=== PATIENT | female | born 1935 | race Caucasian/White ===

== ENCOUNTER 2022-12-25 11:45 | Inpatient (IN) | payer MEDICARE, BC, SELFPAY ==
[2022-12-25] VITALS (67 sets, daily range): BP systolic 124–225; BP diastolic 64–103; PULSE 74–102; RESP 15–27; TEMP 36.4–36.6; O2SAT 90–99; BMI 29.0
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
--- NOTE | 2022-12-25 11:53 | PC.NURSE ---
SULEMAN JOSÉ, , DAUGHTER
--- NOTE | 2022-12-25 11:55 | CTR_ITS ---
PROCEDURE INFORMATION: Exam: CT Head Without Contrast Exam date and time: 12/25/2022 12:03 PM Age: 87 years old Clinical indication: Altered mental status/memory loss; Patient HX: Unknown lkwt, PT not responsive to pain stimuli; Additional info: AMS TECHNIQUE: Imaging protocol: Computed tomography of the head without contrast. Radiation optimization: All CT scans at this facility use at least one of these dose optimization techniques: automated exposure control; mA and/or kV adjustment per patient size (includes targeted exams where dose is matched to clinical indication); or iterative reconstruction. REPORTING DATA: Count of CT and Cardiac NM exams in prior 12 months: This patient has received 0 known CTs and 0 known cardiac nuclear medicine studies in the 12 months prior to the current study. COMPARISON: No relevant prior studies available. RADIATION DOSE METRICS: Total DLP (mGy-cm): 1094.18 FINDINGS: Brain: No acute appearing brain parenchymal abnormality. The wolff matter/white matter junction is maintained. No intracranial hemorrhage. No extraaxial fluid collections. There is diffuse brain atrophy. Cerebral ventricles: No hydrocephalus. Paranasal sinuses: Minimal paranasal sinus mucoperiosteal thickening. Mastoid air cells: The visualized mastoid air cells are aerated. Bones/joints: No calvarial fracture. There is hyperostosis frontalis interna. Soft tissues: No acute soft tissue abnormality. CT/CT head wo con* [id number] IMPRESSION: No acute intracranial abnormality.
--- NOTE | 2022-12-25 11:55 | XRR_ITS ---
PROCEDURE INFORMATION: Exam: XR Chest Exam date and time: 12/25/2022 12:07 PM Age: 87 years old Clinical indication: AMS TECHNIQUE: Imaging protocol: Radiologic exam of the chest. Views: 1 view. COMPARISON: No relevant prior studies available. FINDINGS: Lungs: Possible basilar atelectasis at least on the left side. Pleural spaces: No evidence of a right pleural effusion. Possible left pleural effusion. No pneumothorax. Heart/Mediastinum: The heart is enlarged. Bones/joints: Curvature of the thoracolumbar junction convex to the right associated with multilevel disc degeneration. Degenerative changes in both shoulders. Soft tissues: There appears to be a large hernia projecting over the inferior aspect of both hemithoraces, more so on the left. This contains bowel. Difficult to further characterize on this exam. XR/XR chest 1V portable [id number] IMPRESSION: Large hiatal hernia. Possible left basilar atelectasis or left pleural effusion.
--- NOTE | 2022-12-25 11:56 | ECG_ITS ---
[facility] Test Date: 2022-12-25 Pat Name: Astrid Skaggs Department: Room: Gender: Female Banquet Chef: : 1935 Requested By: Jeffery Ferrari Order Number: [id number] Medrano MD: Tj Lynch M.D. Measurements Intervals [place] Rate: 94 P: 63 PA: 168 QRS: 59 QRSD: 106 T: 54 QT: 382 QTc: 478 Interpretive Statements SINUS RHYTHM WITH SINUS ARRHYTHMIA POSSIBLE LEFT ATRIAL ENLARGEMENT [-0.1mV P-WAVE IN V1/V2] INCOMPLETE RIGHT BUNDLE BRANCH BLOCK [90+ ms QRS DURATION, TERMINAL R IN V1/V2, 40+ ms S IN I/aVL/V4/V5/V6] No previous ECG available for comparison Electronically Signed On 12-27-2022 8:34:17 CDT by Tj Lynch M.D. [id number]
[2022-12-25 12:04] LABS: Glucose Point of Care 147 mg/dL (70-110)
--- NOTE | 2022-12-25 12:08 | PC.PHAR ---
[facility]
[2022-12-25 12:26] LABS: ABG PCO2 41.3 mmHg (35-45); ABG PH Result 7.49 (7.35-7.45); PO2 ABG 63.7 mmHg (80.0-100.0)
[2022-12-25 12:27] LABS: Base Excess ABG 7.3 mmol/L (-2.0-2.0); Oxygen Saturation ABG 94.5; Potassium Level - ABG 2.5 mmol/L (3.5-5.0)
[2022-12-25 12:29] LABS: HGB O2 Sat 92.9 % (95-100); Total Hemoglobin 15.7 g/dL (12-16)
[2022-12-25 12:30] LABS: Blood Gas Drawn By WALCI; Carboxyhemoglobin 1.4 %THgb (0.4-20.1); Methemoglobin 0.3 % (0.4-1.5)
[2022-12-25 12:31] LABS: HCO3 ABG 31.4 mmol/L (22-26)
[2022-12-25 12:32] LABS: Basophils % 0.3 %; Eosinophils # 0.1 10^3/uL (0.0-0.8); Eosinophils % 0.8 %; Hematocrit 43.4 % (37.0-47.0); Hemoglobin 15.7 g/dL (11.5-15.3); Lymphocytes # 0.7 10^3/uL (0.8-4.8); Lymphocytes % 10.2 %; Mean Corpuscular HGB Conc 36.2 g/dL (30.0-36.0); Mean Corpuscular Volume 85.8 fl (81-99); Mean Platelet Volume 9.1 fL (7.4-10.4); Monocytes # 0.4 10^3/uL (0.2-0.9); Neutrophils # 5.92 10^3/uL (1.8-7.7); Neutrophils % 82.6 %; Nucleated Red Blood Cells % 0 %; Platelet Count 343 10^3/cmm (130-400); Red Blood Count 5.06 10^6/uL (4.1-5.3); Red Cell Distribution Width 12.2 % (12.1-15.1); White Blood Count 7.2 10^3/uL (4.0-10.0)
[2022-12-25 12:34] LABS: Alveolar-Arterial Oxygen Gradi 4.6 mmHg (5-10); Blood Gas Allen Test Pos; Blood Gas Operator Identificat WALCI; Blood Gas Sample Site Radial, left; Blood Gas Sample Type Arterial; Ionized Calcium Level - ABG 1.1 mmol/L (1.1-1.4); Oxygen Device ROOM AIR
[2022-12-25 12:52] LABS: Lactic Sepsis W/Reflex 1.3 mmol/L (0.5-2.2)
[2022-12-25 12:56] LABS: Troponin(5th) Baseline 19 ng/L (0-10)
[2022-12-25 13:03] LABS: NT Pro B Type Natriuretic Pept 568 pg/mL (0-450); Procalcitonin 0.05 ng/mL (0-0.5)
[2022-12-25 13:12] LABS: Amphetamines Screen Urine Negative (Negative); Barbiturates Screen Urine Negative (Negative); Benzodiazepines Screen Urine Negative (Negative); Cocaine Screen Urine Negative (Negative); Opiate Screen Urine Negative (Negative); PCP Screen Urine Negative (Negative); THC Screen Urine Negative (Negative)
[2022-12-25 13:14] LABS: Alanine Aminotransferase 24 U/L (0-33); Albumin Level 4.4 g/dL (3.5-5.2); Alkaline Phosphatase 64 U/L (35-105); Anion Gap 18.5 (5-19); Aspartate Amino Transferase 53 U/L (0-32); Blood Urea Nitrogen 11 mg/dL (8-23); C Reactive Protein 3.3 mg/L (0.0-4.9); Calcium 9.6 mg/dL (8.5-10.5); Carbon Dioxide 28 mmol/L (22-29); Chloride 82 mmol/L (98-107); Glucose 152 mg/dL (65-115); Osmolality Calculated 264 mOsm/kg (285-295); Sodium 126 mmol/L (136-145); Total Bilirubin 1.1 mg/dL (0.15-1.2); Total Protein 7.4 g/dL (6.6-8.7)
[2022-12-25 13:20] LABS: Add Urine Microscopic? YES; Bilirubin Urine Neg (Negative); Blood Urine 2+ (Negative); Glucose Urine UA Norm (Normal); Ketones Urine 1+ (Negative); Leukocyte Esterase Urine Negative (Negative); Nitrate Urine Negative (Negative); Protein Urine Neg (Negative); Sulfosalicylic Acid Urine Negative (Negative); Urine Appearance Clear (CLEAR); Urine Color Yellow (Yellow); Urobilinogen Urine Norm (Negative); pH Urine 8 (5-7)
[2022-12-25 13:22] LABS: Bacteria Urine TRACE /hpf; Squamous Epithelial Cell Urine RARE /hpf (0-5); WBC Urine RARE /hpf (0-5)
[2022-12-25 13:23] LABS: Add Urine Culture? No
[2022-12-25 13:27] LABS: Acetaminophen < 5.0 ug/mL (10-30); Alcohol Level < 10 mg/dL (0-10); Potassium 2.5 mmol/L (3.5-5.1); Salicylate < 0.3 mg/dL (3-10)
[2022-12-25] MEDS: lidocaine 1% 5 ML in potassium chloride premix 100 ML 26.25 ML IV ×2 (13:34→18:06)
[2022-12-25] MEDS: sodium chloride 0.9% 1,000 ML 75 ML IV (13:42)
[2022-12-25 13:48] LABS: Magnesium 1.7 mg/dL (1.7-2.3)
[2022-12-25 13:55] LABS: SARS Covid-2 Antigen negative (Negative)
--- NOTE | 2022-12-25 13:55 | ECG_ITS ---
[facility] Test Date: 2022-12-25 Pat Name: Astrid Skaggs Department: Room: Gender: Female Rad Tech: : 1935 Requested By: Jeffery Ferrari Order Number: [id number] Mitchell MD: Tj Lynch M.D. Measurements Intervals [place] Rate: 98 P: 62 IA: 160 QRS: 50 QRSD: 96 T: 48 QT: 366 QTc: 468 Interpretive Statements SINUS RHYTHM WITH OCCASIONAL VENTRICULAR PREMATURE COMPLEXES POSSIBLE LEFT ATRIAL ENLARGEMENT [-0.1mV P-WAVE IN V1/V2] POSSIBLE RIGHT VENTRICULAR CONDUCTION DELAY [RSR (QR) IN V1/V2] MINIMAL ST DEPRESSION [0.025+ mV ST DEPRESSION] Compared to ECG 12/25/2022 12:26:29 Ventricular premature complex(es) now present ST (T wave) deviation now present Sinus arrhythmia no longer present Incomplete right bundle-branch block no longer present Electronically Signed On 12-27-2022 8:37:59 CDT by Tj Lynch M.D. [id number]
[2022-12-25 14:03] LABS: Glucose Point of Care 122 mg/dL (70-110)
[2022-12-25] MEDS: labetalol 5 mg/mL SDV 20mL 20 MG IVP (14:05)
--- NOTE | 2022-12-25 14:11 | PC.NURSE ---
Multiple attempts to call shawanda Pak with number on file. Busy signal each time. Unable to assess allergies at this time. Elevated BP since admission and per EMS.
--- NOTE | 2022-12-25 14:17 | PC.NURSE ---
Patient brought in by EMS, unresponsive and obtunded upon admission, EVAN hx or symptoms per patient. Unable to get ahold of daughter. Patient had some decerbate posturing upon admission but currently is not showing s/s of posturing. Able to open mouth on command now versus upon admission but still no verbal responses. Pupils brisk and PERRLA. Unable to assess NIH as not responding. Report called to Brenna CSU RN.
[2022-12-25 14:23] LABS: Free T4 Free Thyroxine 1.32 ng/dL (0.82-1.77)
[2022-12-25 14:42] LABS: Glucose Point of Care 127 mg/dL (70-110)
[2022-12-25 14:44] LABS: Troponin 5 2HR 19.72 ng/L (0-10)
[2022-12-25 14:47] LABS: Troponin 5 2HR Delta 0.72 ABS# (0-10)
--- NOTE | 2022-12-25 15:18 | PC.NURSE ---
Patient arrived from ER with altered mental status and was unable to answer any admission assessment questions. Daughter was contacted and was able to give the patients history, immunizations, and drug allergies.
--- NOTE | 2022-12-25 17:06 | CTR_ITS ---
PROCEDURE INFORMATION: Exam: CTA Chest With Contrast Exam date and time: 12/25/2022 6:35 PM Age: 87 years old Clinical indication: Bloating; Other: Hypoxia; Patient HX: Limited HX due to PT condition; Additional info: AMS, hypoxia, abdominal pain TECHNIQUE: Imaging protocol: Computed tomographic angiography of the chest with contrast. Exam focused on the arteries. 3D rendering (Not supervised by radiologist): MIP and/or 3D reconstructed images were created by the technologist. Radiation optimization: All CT scans at this facility use at least one of these dose optimization techniques: automated exposure control; mA and/or kV adjustment per patient size (includes targeted exams where dose is matched to clinical indication); or iterative reconstruction. Contrast material: OMNIPAQUE 350; Contrast volume: 100 ml; Contrast route: INTRAVENOUS (IV); REPORTING DATA: Count of CT and Cardiac NM exams in prior 12 months: This patient has received 0 known CTs and 0 known cardiac nuclear medicine studies in the 12 months prior to the current study. COMPARISON: CR (CHEST, ) 12/25/2022 12:07 PM RADIATION DOSE METRICS: Total DLP (mGy-cm): 845.21 FINDINGS: Pulmonary arteries: There is no pulmonary embolism in the central-proximal segmental branches. Assessment of the peripheral subsegmental small branches is limited. Aorta: No aortic aneurysm. No aortic dissection. Lungs: Compressive atelectasis adjacent to the large diaphragmatic hernia. Otherwise no acute lung consolidation or ground-glass opacity. Calcified pulmonary granuloma anteromedial left upper lobe measuring 9 mm. Pleural spaces: Unremarkable. No pneumothorax. No pleural effusion. Heart: Mild cardiomegaly with coronary calcification. Suggestion of pulmonary vascular redistribution which may represent mild vascular congestion. Lymph nodes: Unremarkable. No enlarged lymph nodes. Diaphragm: Large diaphragmatic/hiatal hernia as described on abdominal CT report below. Bones/joints: S shaped scoliosis of the thoracolumbar spine. Soft tissues: Unremarkable. PROCEDURE INFORMATION: Exam: CT Abdomen And Pelvis With Contrast Exam date and time: 12/25/2022 6:35 PM Age: 87 years old Clinical indication: Bloating; Other: Hypoxia; Patient HX: Limited HX due to PT condition; Additional info: AMS, hypoxia, abdominal pain TECHNIQUE: Imaging protocol: Computed tomography of the abdomen and pelvis with contrast. Radiation optimization: All CT scans at this facility use at least one of these dose optimization techniques: automated exposure control; mA and/or kV adjustment per patient size (includes targeted exams where dose is matched to clinical indication); or iterative reconstruction. Contrast material: OMNIPAQUE 350; Contrast volume: 100 ml; Contrast route: INTRAVENOUS (IV); REPORTING DATA: Count of CT and Cardiac NM exams in prior 12 months: This patient has received 0 known CTs and 0 known cardiac nuclear medicine studies in the 12 months prior to the current study. COMPARISON: CR (CHEST, ) 12/25/2022 12:07 PM RADIATION DOSE METRICS: Total DLP (mGy-cm): 845.21 FINDINGS: Liver: Normal. No mass. Gallbladder and bile ducts: Normal. No calcified stones. No ductal dilation. Pancreas: Normal. No ductal dilation. Spleen: Normal. No splenomegaly. Adrenal glands: Normal. No mass. Kidneys and ureters: Multiple simple renal cysts bilaterally the largest measuring up to 3 mm on the right. No hydronephrosis or suspicious lesion. No obstructing calculi. Stomach and bowel: There is a large midline/left diaphragmatic hernia which contains fat, most of the stomach, portion of the transverse colon with no obvious regional luminal distention to suggest obstruction. Low stool burden. Colonic diverticulosis. No acute bowel findings otherwise. No imaging signs of bowel obstruction/ileus. Appendix: No evidence of appendicitis. Intraperitoneal space: Unremarkable. No free air. No significant fluid collection. Vasculature: Diffuse arterial calcifications without aneurysm. Lymph nodes: No enlarged lymph nodes. Urinary bladder: nondistended bladder containing a Da Silva balloon in good position. Reproductive: Absent uterus. Bones/joints: S shaped scoliosis of the thoracolumbar spine. Multilevel vertebral disc degeneration and endplate osteophytes. No acute osseous findings otherwise. Soft tissues: No acute findings. CT/CT angio chest w abd pel w con IMPRESSION: 1. No acute PE. 2. Mild cardiomegaly with possible element of mild vascular congestion. Coronary calcification. 3. Compressive atelectasis adjacent to the diaphragm. No acute lung findings otherwise. Large diaphragmatic hernia. Please refer to abdominopelvic CT report below. IMPRESSION: 1. Large hiatal/diaphragmatic hernia as described above. 2. Colonic diverticulosis. No acute bowel findings. 3. No acute abdominopelvic findings otherwise. Please see chest CT report above. COMMENTS: Consistent with the [employer]'s Incidental Findings Committee white paper (J Am Young Radiol 2018): Any incidental renal lesion less than 1 cm or classified as too small to characterize, or any incidental cystic renal lesion characterized as simple-appearing, is likely benign. No follow-up imaging is recommended for these lesions per consensus recommendations based on imaging criteria.
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
[2022-12-25] MEDS: docusate sodium 100 mg Capsule PO (17:55)
--- NOTE | 2022-12-25 17:56 | ECG_ITS ---
[facility] Test Date: 2022-12-25 Pat Name: Astrid Skaggs Department: Room: 111 Gender: Female Supervisor Finishing Room: : 1935 Requested By: Jeffery Ferrari Order Number: [id number] Mitchell MD: Tj Lynch M.D. Measurements Intervals [place] Rate: 86 P: 62 WA: 157 QRS: 59 QRSD: 106 T: 53 QT: 403 QTc: 483 Interpretive Statements SINUS RHYTHM Compared to ECG 12/25/2022 13:55:59 Ventricular premature complex(es) no longer present ST (T wave) deviation no longer present Electronically Signed On 12-27-2022 8:37:22 CDT by Tj Lynch M.D. [id number]
[2022-12-25 18:25] LABS: Vitamin B12 466 pg/mL (232-1245)
[2022-12-25] MEDS: iohexol 350 mg/mL 500 mL Btl (per mL) IV (18:36)
[2022-12-25 18:37] LABS: Creatine Phosphokinase 884 U/L (26-192)
[2022-12-25 18:39] LABS: Ammonia 25 umol/L (11-51)
[2022-12-25 19:19] LABS: Troponin 5 6HR 24.07 ng/L (0-10)
[2022-12-25 19:23] LABS: Troponin 5 6HR Delta 5.07 ng/L (0-12)
[2022-12-25 19:38] LABS: Folate Level 14.8 ng/mL (4.8-37.3)
[2022-12-26] VITALS (52 sets, daily range): BP systolic 111–157; BP diastolic 55–73; PULSE 60–102; RESP 16–30; TEMP 36.4–37.2; O2SAT 89–94
[2022-12-26] MEDS: ondansetron 2 mg/ML SDV 2 mL 4 MG IVP (00:23)
[2022-12-26] MEDS: sodium chloride 0.9% 1,000 ML 75 ML IV ×2 (03:06→18:31)
[2022-12-26 03:34] LABS: Basophils % 0.4 %; Eosinophils # 0.2 10^3/uL (0.0-0.8); Hematocrit 38.5 % (37.0-47.0); Hemoglobin 13.1 g/dL (11.5-15.3); Lymphocytes # 1.3 10^3/uL (0.8-4.8); Lymphocytes % 16.7 %; Mean Corpuscular Hemoglobin 30.5 pg (28.0-34.0); Mean Corpuscular Volume 89.7 fl (81-99); Mean Platelet Volume 9.5 fL (7.4-10.4); Monocytes # 0.6 10^3/uL (0.2-0.9); Neutrophils # 5.57 10^3/uL (1.8-7.7); Neutrophils % 72.6 %; Nucleated Red Blood Cells % 0 %; Platelet Count 313 10^3/cmm (130-400); Red Blood Count 4.29 10^6/uL (4.1-5.3); Red Cell Distribution Width 12.5 % (12.1-15.1); White Blood Count 7.7 10^3/uL (4.0-10.0)
[2022-12-26 04:15] LABS: Alanine Aminotransferase 19 U/L (0-33); Albumin Level 3.8 g/dL (3.5-5.2); Alkaline Phosphatase 53 U/L (35-105); Anion Gap 17.8 (5-19); Aspartate Amino Transferase 41 U/L (0-32); Blood Urea Nitrogen 10 mg/dL (8-23); Calcium 8.8 mg/dL (8.5-10.5); Carbon Dioxide 27 mmol/L (22-29); Chloride 92 mmol/L (98-107); Glucose 95 mg/dL (65-115); Osmolality Calculated 275 mOsm/kg (285-295); Potassium 3.8 mmol/L (3.5-5.1); Sodium 133 mmol/L (136-145); Total Bilirubin 0.9 mg/dL (0.15-1.2); Total Protein 5.8 g/dL (6.6-8.7)
--- NOTE | 2022-12-26 12:23 | MRR_ITS ---
PROCEDURE INFORMATION: Exam: MR Head Without Contrast Exam date and time: 12/26/2022 2:18 PM Age: 87 years old Clinical indication: Altered mental status/memory loss; Confusion or disorientation; Additional info: Acute psychosis; Evalaute for organic cause TECHNIQUE: Imaging protocol: Magnetic resonance imaging of the head without contrast. COMPARISON: CT head wo con* [id number] 12/25/2022 12:03 PM FINDINGS: Brain: No acute infarct. No hemorrhage. No edema. Mild diffuse cerebral atrophy and FLAIR T2 hyperintense signal abnormality within the periventricular and deep white matter tracts consistent with chronic small vessel ischemic disease. Cerebral ventricles: Normal. No ventriculomegaly. Bones/joints: Unremarkable. Paranasal sinuses: Mucosal thickening of the inferior maxillary sinuses. Mastoid air cells: Trace left mastoid effusion. Orbital cavities: Unremarkable. Soft tissues: Unremarkable. MR/MR head wo con* [id number] IMPRESSION: No acute ischemia.
--- NOTE | 2022-12-26 14:28 | PC.NURSE ---
pt continues to be paranoid,confused.states she is in someone else's body.we are snatching bodies.she spoke with her daughter over phone and that seemed to settle her a little bit.to mri via bed at 1410.
--- NOTE | 2022-12-26 15:02 | PC.NURSE ---
mri was completed.no sedation required.report phoned to m/s.transferred to room 261 via bed at this time
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
--- NOTE | 2022-12-26 18:56 | PC.NURSE ---
SHIFT START This nurse will be 1:1 sitter with pt this shift. When first walked into room pt was alert sitting up in bed eating a bowl of cereal. Was talking with sitter at bedside.. Smiled at me and was pleasant. Is oriented to person, place, month, year and parts of situation. Tells me she remembers and says she had some MRI's today. Also stated I thought I was dying and I guess I was really out of it . Denies pain at present. Following directions and answering questions.
[2022-12-27 03:43] LABS: Alanine Aminotransferase 15 U/L (0-33); Albumin Level 3.5 g/dL (3.5-5.2); Alkaline Phosphatase 41 U/L (35-105); Anion Gap 12.5 (5-19); Aspartate Amino Transferase 33 U/L (0-32); Blood Urea Nitrogen 17 mg/dL (8-23); Calcium 8.4 mg/dL (8.5-10.5); Carbon Dioxide 30 mmol/L (22-29); Chloride 96 mmol/L (98-107); Creatinine Clr Calc Pharmacy 49.2309; Globulin 1.7 g/dL (1.3-4.6); Glucose 83 mg/dL (65-115); Osmolality Calculated 281 mOsm/kg (285-295); Potassium 3.5 mmol/L (3.5-5.1); Sodium 135 mmol/L (136-145); Total Bilirubin 0.6 mg/dL (0.15-1.2); Total Protein 5.2 g/dL (6.6-8.7)
[2022-12-27 03:47] LABS: Creatine Phosphokinase 321 U/L (26-192)
[2022-12-27 04:00] VITALS: BP 126/70; PULSE 74; RESP 16; TEMP 36.6; O2SAT 91
--- NOTE | 2022-12-27 06:26 | PC.NURSE ---
SHIFT SUMMARY Slept well tonight. Has had no c/o and no signs of paranoia. Has been very pleasant. Carrying on good conversation with nurse this morning. Talking about her family and places she has lived. Says can't figure out what happened to her. Does remember just not being able to figure things out in her mind. Says she is sure glad she is feeling better
[2022-12-27 07:25] VITALS: BP 175/75; PULSE 71; RESP 18; TEMP 36.4; O2SAT 90
[2022-12-27] MEDS: docusate sodium 100 mg Capsule PO ×2 (08:48→17:55)
[2022-12-27] MEDS: pantoprazole DR 40 mg Tablet PO (08:48)
[2022-12-27] MEDS: sodium chloride 0.9% 1,000 ML 75 ML IV (08:49)
[2022-12-27 11:35] VITALS: BP 164/71; PULSE 83; RESP 18; TEMP 36.4; O2SAT 91
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
--- NOTE | 2022-12-27 13:18 | P.PN_ITS ---
Subjective Subjective: Patient with undetermined underlying psychological condition who seems to improve when she talks to her family. With me she wanted to know what her status was. When I talked to her about a short-term custodial facility placement she said she would rather not talk about it. However then she proceeded to continue to ask how she was doing but would not tell me how she was feeling. The nurse just called me and said the patient is experiencing agitation throwing things and broke her phone. Vitals/I&O/Wt Last Vital Signs Temp 97.5 F L 12/27/22 11:35 Pulse 83 12/27/22 11:35 Resp 18 12/27/22 11:35 BP 164/71 12/27/22 11:35 Pulse Ox 91 12/27/22 11:35 O2 Del Method Room Air 12/27/22 11:35 12/26/22 12/27/22 12/27/22 22:59 06:59 14:59 Intake Total 1240 / 1240 100 / 1340 1240 / 1240 Output Total 150 / 150 350 / 500 Balance 1090 / 1090 -250 / 840 1240 / 1240 Physical Exam Narrative: At the time of rounding this morning patient was alert and oriented to person place time not really situation. Neurologic nonfocal Heart normal S1-S2 without murmurs clicks gallops or rubs Lungs clear to auscultation without wheezes rales or rhonchi Abdomen soft nontender nondistended positive bowel sounds Extremities no clubbing cyanosis or edema Urinary Catheter Management: Da Silva: Cath Placed During This Visit: yes Reason for Continuing Indwelling Catheter: Other Urinary Catheter Date of Insertion: 12/25/22 Urinary Catheter Time of Insertion: 12:49 Data 12/26/22 02:48 12/27/22 02:28 Micro: Microbiology 12/25/22 12:19 Blood Culture - Preliminary Blood NEGATIVE TO DATE 12/25/22 12:22 Blood Culture - Preliminary Blood NEGATIVE TO DATE A&P Assessment and plan (1) Acute psychosis: Patient presenting with paranoid ideation as noted in H&P. MRI of the brain was negative and her electrolytes were corrected. VSS have been stable and work up is negative. Additional information provided that patient has had a similar episode in the past where she needed inpatient admission for 3 days, episode appears to have resolved with Valium. Overall impression is now that more consistent with acute psychosis rather than an organic cause. psychiatry was consulted, however, I do not see note. Will call for consult [employer] plan is for pt to live with daugther in [place]. Appreciate CM assistance with plan. Will need SNF in short term. (2) Hypokalemia: improved after replacement. will follow trend. (3) Generalized muscle weakness: Generalized muscle weakness without focal signs. May be related to hypokalemia and rhabdomyolysis which is mild. CPK improved to 321 from 884. and hypokalemia improved. Plan SNF locally. CM in touch with daughter see their note. Attestations Medical Necessity Statement*: Medical management and adjustments to medications with planning on short-term custodial facility placement. Coding Level of Care Code Acute Code for g Fwd Diagnoses Acute psychosis F23 Hypokalemia E87.6 Generalized muscle weakness M62.81
[2022-12-27 15:55] VITALS: BP 183/80; PULSE 101; RESP 18; TEMP 36.2; O2SAT 92
--- NOTE | 2022-12-27 16:23 | PC.OT ---
REGGIE ORDER RECEIVED, UNABLE TO PERFORM TEST THIS DATE SECONDARY TO PATIENT UNDRESSING HERSELF, AND DEMONSTRATING COMBATIVE AND AGGRESSIVE BEHAVIORS NOTED BY YELLING AND THROWING THINGS AT PEOPLE AND ACROSS THE ROOM. PT. ALSO NOTED AT TIME OF OT ARRIVAL, TO BE WRITING SOS ON WINDOW WITH LOTION. WILL ATTEMPT AGAIN WHEN APPROPRIATE AND MENTATION IMPROVES.
[2022-12-27] MEDS: LORazepam 2 mg/mL INJ 1 mL 1 MG IVP (16:27)
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
[2022-12-27] MEDS: OLANZapine 5 mg ODT 2.5 MG PO (17:06)
[2022-12-27 20:00] VITALS: BP 152/85; PULSE 104; RESP 18; TEMP 36.6; O2SAT 91
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
[2022-12-28] VITALS (8 sets, daily range): BP systolic 109–189; BP diastolic 58–93; PULSE 84–107; RESP 15–20; TEMP 36.1–36.7; O2SAT 90–96
[2022-12-28] MEDS: OLANZapine 5 mg TABLET PO (08:11)
[2022-12-28] MEDS: docusate sodium 100 mg Capsule PO (08:20)
[2022-12-28] MEDS: pantoprazole DR 40 mg Tablet PO (08:20)
[2022-12-28] MEDS: hyDRALAzine 20 mg/mL INJ 1 mL 10 MG IVP (11:15)
--- NOTE | 2022-12-28 14:29 | PC.SOCIAL ---
Pg 2 IMM Explained to pt's daughter Pg 2 IMM. No questions voiced. Provided pt a copy. Initialed, dated, & timed a copy & placed in chart.
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
[2022-12-28] MEDS: LORazepam 2 mg/mL INJ 1 mL 1 MG IVP (15:43)
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
[2022-12-29 03:34] VITALS: BP 126/75; PULSE 95; RESP 17; TEMP 36.6; O2SAT 93
[2022-12-29 05:55] LABS: Blood Urea Nitrogen 18 mg/dL (8-23); Carbon Dioxide 31 mmol/L (22-29); Chloride 95 mmol/L (98-107); Glucose 90 mg/dL (65-115); Magnesium 1.8 mg/dL (1.7-2.3); Osmolality Calculated 287 mOsm/kg (285-295); Sodium 138 mmol/L (136-145)
[2022-12-29 05:56] LABS: Creatine Phosphokinase 240 U/L (26-192)
[2022-12-29 05:57] LABS: Anion Gap 15.6 (5-19); Potassium 3.6 mmol/L (3.5-5.1)
[2022-12-29 07:36] VITALS: BP 125/78; PULSE 89; RESP 17; TEMP 36.3; O2SAT 95
[2022-12-29] MEDS: pantoprazole DR 40 mg Tablet PO (10:03)
[2022-12-29] MEDS: hyDROXYzine 25 mg Capsule PO ×4 (10:03→22:02)
[2022-12-29] MEDS: docusate sodium 100 mg Capsule PO ×2 (10:03→17:53)
[2022-12-29 11:23] VITALS: BP 159/76; PULSE 94; RESP 16; TEMP 36.7; O2SAT 94
--- NOTE | 2022-12-29 14:06 | PC.NURSE ---
Pt has meds in [facility]. Med information placed in chart.
[2022-12-29 14:24] LABS: Add Urine Microscopic? YES; Bilirubin Urine 1+ (Negative); Blood Urine 3+ (Negative); Glucose Urine UA 1+ (Normal); Ketones Urine 1+ (Negative); Leukocyte Esterase Urine 2+ (Negative); Nitrate Urine Positive (Negative); Protein Urine 3+ (Negative); Urine Appearance Cloudy (CLEAR); Urine Color Dark Yellow (Yellow); Urobilinogen Urine 1 mg/dL (Negative); pH Urine 5 (5-7)
[2022-12-29 14:35] LABS: Squamous Epithelial Cell Urine 0-4 /hpf (0-5); WBC Urine 80-100 /hpf (0-5)
[2022-12-29 14:36] LABS: Add Urine Culture? Yes; Amorphous Sediment Urine 1+ /hpf; Bacteria Urine 2+ /hpf; Mucus Urine 1+ /hpf
--- NOTE | 2022-12-29 15:01 | P.PN_ITS ---
Subjective Subjective: Patient seen sitting in chair with daughter at bedside. The daughter is thrilled with her mother's improvement after the change of medications yesterday. She is hopeful transfer to a regular senior care could occur instead of placement at a [facility]. Hospital course: Patient presenting with paranoid ideation with work-up negative for organic disease.Patient carries a history of psychotic break previously and inpatient admission for 3 days. Daughter insist that Valium is what helped previously. Patient was started on Zyprexa by psychiatry. Unfortunately after 2 days this was ineffective. 12/28/22: Zyprexa was stopped and Seroquel was initiated last night once daily extended release. She was also started on Atarax 25 mg 4 times daily for anxiety. 12/29/22: Patient is markedly improved having no further outbursts or paranoid ideas. Urine output has decreased and urine appears darker. UA obtained this afternoon and is mildly positive for UTI will treat with Macrodantin. [facility] on[facility] versus senior care placement The?residential plan is for pt to move to [place] with daughter. Thus short-term goal is for patient to receive senior care care locally to give the daughter time to prepare for move. Originally .patient will need placement locally until arrangements can be made.? Initially, [facility] is what is recommended.? However with her improvement it is possible that patient can transfer to SNF Vitals/I&O/Wt Last Vital Signs Temp 98.0 F 12/29/22 11:23 Pulse 94 12/29/22 11:23 Resp 16 12/29/22 11:23 BP 159/76 12/29/22 11:23 Pulse Ox 94 12/29/22 11:23 O2 Del Method Room Air 12/29/22 03:34 12/29/22 12/29/22 12/29/22 06:59 14:59 22:59 Intake Total 240 / 240 Output Total 100 / 1200 Balance -100 / -720 240 / 240 Physical Exam Narrative: Patient seen sitting in chair with daughter at bedside. She is much more calm and interactive today. Neurologic nonfocal Heart normal S1-S2 without murmurs clicks gallops or rubs Lungs clear to auscultation without wheezes rales or rhonchi Abdomen soft nontender nondistended positive bowel sounds Extremities no clubbing cyanosis or edema Psychiatric: Calm and interactive no irrational thoughts today Urinary Catheter Management: Da Silva: Cath Placed During This Visit: yes, but has since been removed by the nurse Reason for Continuing Indwelling Catheter: Decision to DC Catheter Urinary Catheter Date of Insertion: 12/25/22 Urinary Catheter Time of Insertion: 12:49 Date Urinary Catheter Removed: 12/29/22 Time Urinary Catheter Discontinued: 14:05 Data 12/26/22 02:48 12/29/22 04:59 A&P Assessment and plan (1) Acute psychosis: Currently on Seroquel with much improvement Anxiety is being treated with Atarax 25 mg 4 times daily (2) Elevated TSH: Her thyroid replacement dose has been increased to 112 mcg daily (3) Generalized muscle weakness: PT OT working with patient she is requiring walker (4) Tachycardia: Start beta-sergey as this will help anxiety as well as blood pressure and heart rate. Her home dose of MIcardis was discontinued and replaced with the beta-sergey. (5) UTI (urinary tract infection): UA today was slightly positive Real tract infection we will start Macrobid for 7 days (6) JOANA (acute kidney injury): Patient was encouraged to drink more fluids. If patient unable to consume enough fluids patient will require intravenous administration (7) Hypertension: Patient's home dose of Micardis was discontinued and replaced with atenolol which will help with tachycardia as well Plan The?residential plan is for pt to move to [place] with daughter. The short-term goal is for patient to receive senior care care locally to give the daughter time to prepare for move.? Initially, due to the psychosis, [facility] was recommended.? However, with her improvement it is possible that patient can transfer to SNF Attestations Medical Necessity Statement*: Treatment of psychosis and proper discharge plan as patient is not safe to live alone at home Coding Level of Care Code Acute Code for [facility] Fwd Diagnoses Acute psychosis F23 Elevated TSH R79.89 Generalized muscle weakness M62.81 Tachycardia R00.0 UTI (urinary tract infection) N39.0 JOANA (acute kidney injury) N17.9 Hypertension I10
[2022-12-29 16:00] VITALS: BP 127/74; PULSE 80; RESP 17; TEMP 36.9; O2SAT 93
[2022-12-29] MEDS: atenolol 50 mg Tablet 25 MG PO (16:25)
--- NOTE | 2022-12-29 16:30 | P.NPUPN_ITS ---
Subjective NPU Subjective: Patient is an 87-year-old white female with a reported 3-week history of psychosis. The patient had been more compliant and had not refused oral intake. She had expressed interest in being transition to a nursing facility. She had reported adequate sleep. She had minimized her previous problems although she still had continued to appear to question certain things that it occurred and di d continue to state that she felt that she was when she came into the hospital. Mental Status Exam MSE Comments: Patient is a thin white female who appeared her stated age. She was alert and oriented to person place and time. She was lying in her hospital bed. She continued to remain somewhat guarded. Her speech was normal regards to rate rhythm and prosody with no word finding difficulties. Her thought process appeared linear and logical. Her thought content showed no active homicidal or suicidal ideation. She did not appear to be responding to internal stimuli. There was some continued evidence of paranoia noted. Her insight was limited. Her judgment appeared guarded. Her impulse control appeared poor at this time. Vitals/I&O/Wt Last Vital Signs Temp 98.0 F 12/29/22 11:23 Pulse 94 12/29/22 11:23 Resp 16 12/29/22 11:23 BP 159/76 12/29/22 11:23 Pulse Ox 94 12/29/22 11:23 O2 Del Method Room Air 12/29/22 03:34 12/29/22 12/29/22 12/29/22 06:59 14:59 22:59 Intake Total 240 / 240 Output Total 100 / 1200 Balance -100 / -720 240 / 240 Physical Exam Urinary Catheter Management: Da Silva: Cath Placed During This Visit: yes, but has since been removed by the nurse Reason for Continuing Indwelling Catheter: Decision to DC Catheter Urinary Catheter Date of Insertion: 12/25/22 Urinary Catheter Time of Insertion: 12:49 Date Urinary Catheter Removed: 12/29/22 Time Urinary Catheter Discontinued: 14:05 Data NPU 12/26/22 02:48 12/29/22 04:59 A&P Assessment and plan (1) Acute psychosis: Plan Is an 87-year-old white female who appears to have some evidence of psychosis and would likely benefit from a low-dose of an antipsychotic and likely inpatient hospitalization if she is unable to comply with treatment. She is already refused further evaluation to determine her ability to live independently and would likely benefit from hospital stay in a geropsychiatry facility. 1. Continue Seroquel [id number] at night. 2. Begin [facility], although if daughter is able to provide supervision, she may be able to manage her in her home when stabilized in nursing care or rehab facility. Attestations NPU Medical Necessity Statement*: Inpatient psychiatric hospitalization at [facility]. unit is recommended. Coding Level of Care Code Acute Code for [facility] Fwd Diagnoses Acute psychosis F23
[2022-12-29] MEDS: nitrofurantoin SR (BID) 100 mg Capsule PO (17:53)
[2022-12-29 20:00] VITALS: BP 122/74; PULSE 86; RESP 16; TEMP 37.3; O2SAT 91
[2022-12-29] MEDS: quetiapine XR (24HR) 50 mg Tablet 150 MG PO (22:00)
[2022-12-30] VITALS: BP 106/65; PULSE 71; RESP 14; TEMP 37.3; O2SAT 92
[2022-12-30 03:48] VITALS: BP 104/64; PULSE 66; RESP 15; TEMP 37.2; O2SAT 91
[2022-12-30] MEDS: levothyroxine 112 mcg Tablet PO (05:22)
--- NOTE | 2022-12-30 07:23 | P.PN_ITS ---
Subjective Subjective: seen at bedside this AM. daughter in room. Patient seen sitting in chair with daughter at bedside. The daughter is thrilled with her mother's improvement after the change of medications yesterda y. She is hopeful transfer to a regular group home could occur instead of placement at a [facility]. Hospital course: Patient presenting with paranoid ideation with work-up negative for organic disease.Patient carries a history of psychotic break previously and inpatient admission for 3 days. Daughter insist that Valium is what helped previously. Patient was started on Zyprexa by psychiatry. Unfortunately after 2 days this was ineffective. 12/28/22: Zyprexa was stopped and Seroquel was initiated last night once daily extended release. She was also started on Atarax 25 mg 4 times daily for anxiety. 12/29/22: Patient is markedly improved having no further outbursts or paranoid ideas. Urine output has decreased and urine appears darker. UA obtained this afternoon and is mildly positive for UTI will treat with Macrodantin. Questionable [facility] unit versus group home placement 12/30/22: pending placement at [facility] psych in [place] The?continuous churn butterm[employer] plan is for pt to move to [place] with daughter. Thus short-term goal is for patient to receive group home care locally to give the daughter time to prepare for move. Originally .patient will need placement locally until arrangements can be made.? Initially, [facility] is what is recommended.? However with her improvement it is possible that patient can transfer to SNF Medications: Reviewed: Yes Vitals/I&O/Wt Last Vital Signs Temp 99 F 12/30/22 03:48 Pulse 66 12/30/22 03:48 Resp 15 12/30/22 03:48 BP 104/64 12/30/22 03:48 Pulse Ox 91 12/30/22 03:48 O2 Del Method Room Air 12/30/22 03:48 12/29/22 12/30/22 12/30/22 22:59 06:59 14:59 Output Total 250 / 250 Balance -250 / -10 Physical Exam Narrative: Patient seen sitting in chair. Neurologic nonfocal Heart normal S1-S2 without murmurs clicks gallops or rubs Lungs clear to auscultation without wheezes rales or rhonchi Abdomen soft nontender nondistended positive bowel sounds Extremities no clubbing cyanosis or edema Psychiatric:not alert to person, place or time. suspicious nature during conversation. some paranoia of hospital staff Urinary Catheter Management: Da Silva: Cath Placed During This Visit: yes, but has since been removed by the nurse Reason for Continuing Indwelling Catheter: Decision to DC Catheter Urinary Catheter Date of Insertion: 12/25/22 Urinary Catheter Time of Insertion: 12:49 Date Urinary Catheter Removed: 12/29/22 Time Urinary Catheter Discontinued: 14:05 Data 12/26/22 02:48 12/29/22 04:59 A&P Assessment and plan (1) Acute psychosis: Currently on Seroquel with much improvement Anxiety is being treated with Atarax 25 mg 4 times daily followed by Psych pending [facility] transfer (2) Elevated TSH: Synthroid increased to 112 mcg daily (3) Generalized muscle weakness: PT OT working with patient she is requiring walker (4) Tachycardia: Start beta-sergey as this will help anxiety as well as blood pressure and heart rate. Her home dose of MIcardis was discontinued and replaced with the beta-sergey. (5) UTI (urinary tract infection): Macrobid for 7 days (6) JOANA (acute kidney injury): Creatinine bump from 0.9 to 1.5 (12/29/22) pending AM BMP encourage PO intake. if no improvement this AM will add IVF (7) Hypertension: Patient's home dose of Micardis was discontinued and replaced with atenolol w hich will help with tachycardia as well Plan pending [facility] placement The?continuous churn buttermaker plan is for pt to move to [place] with daughter. The short-term goal is for patient to receive group home care locally to give the daughter time to prepare for move.? Initially, due to the psychosis, [facility] was recommended.? However, with her improvement it is possible that patient can transfer to SNF Attestations Medical Necessity Statement*: will require greater than 2 midnight for placement Coding Level of Care Code [id number] Diagnoses Acute psychosis F23 Elevated TSH R79.89 Generalized muscle weakness M62.81 Tachycardia R00.0 UTI (urinary tract infection) N39.0 JOANA (acute kidney injury) N17.9 Hypertension I10
[2022-12-30] MEDS: docusate sodium 100 mg Capsule PO ×2 (08:23→18:05)
[2022-12-30] MEDS: hyDROXYzine 25 mg Capsule PO ×3 (08:23→21:21)
[2022-12-30] MEDS: atenolol 50 mg Tablet 25 MG PO (08:23)
[2022-12-30] MEDS: nitrofurantoin SR (BID) 100 mg Capsule PO ×2 (08:24→18:05)
--- NOTE | 2022-12-30 08:43 | PC.NURSE ---
Patient is confused and anxious this morning. Patient refused to have [facility] REMOVER or nurse take vitals at this time. Nurse respected patient's wishes.
--- NOTE | 2022-12-30 10:30 | PC.CHAP ---
Pastoral Care Encounter/Spiritual Assessment Type of Contact [] Declined systems navigator visit [] Patient/Family/Request visit [] Outpatient visit [] Follow-up visit [] Physician referral [] Code/Alert [x] Routine visit [] Staff referral [] Actively dying [] Patient sleeping [] Family support [] [] Out of room [] Palliative care [] [x] Receiving care in room [] Pre-surgical visit [] Trauma [] Long length of stay [] ICU visit [] Other: Relational/Emotional Strength [x] Patient feels connected with others/family/visitors/staff [] Distress [] Loneliness/isolation [] Abandonment Spirituality of Patient [x] Person of Shira [] Attends Congregation of their Shira [x] Believes in Prayer [] Reads Bible or Druze materials [] There are Spiritual issues to be addressed Automatic Vulcanizing Operator Interventions [x] Prayer [x] Active listening [x] Non-anxious presence [x] Spiritual/emotional support [] Crisis/trauma care [x] Spiritual counseling [] Bereavement support [] Provided bereavement packet [] Provided Bible/devotional materials [] Provided toy/stuffed animal, coloring book to patient or family member [] Provided Communion [] Anointing/[place] [] Salvation [x] Completed spiritual assessment [] Other: Impact on Illness or Injury [] Angry [] Fearful [] Anxious [] Often cries [] Exhaustion [] Unable to work [] Unable to attend yarsanism [] Unable to walk/stand [] Unable to read [] Unable to drive [] Unable to eat/drink [] Unable to sleep [] Unable to be with family [] Patient intubated [] Other: Summary hip replacement well rehab at has a good attitude is going home Time spent with patient 10 mins
[2022-12-30 12:00] VITALS: BP 108/66; PULSE 60; RESP 15; TEMP 36.6; O2SAT 91
[2022-12-30 16:00] VITALS: BP 145/78; PULSE 63; RESP 17; TEMP 36.4; O2SAT 93
[2022-12-30 19:20] VITALS: BP 139/72; PULSE 61; RESP 16; TEMP 36.4; O2SAT 90
--- NOTE | 2022-12-30 21:26 | PC.NURSE ---
pt refusing to have lab drawn this evening, refused IV line started and refusing IV fluids along with seroquel, pt becoming agitated.
[2022-12-30 23:33] VITALS: BP 156/75; PULSE 58; RESP 16; TEMP 36.5; O2SAT 90
[2022-12-31 03:54] VITALS: BP 120/67; PULSE 60; RESP 15; TEMP 36.7; O2SAT 90
--- NOTE | 2022-12-31 05:01 | PC.NURSE ---
pt refused to have IV placed.
[2022-12-31] MEDS: levothyroxine 112 mcg Tablet PO (05:13)
--- NOTE | 2022-12-31 07:18 | P.PN_ITS ---
Subjective Subjective: pt seen sitting in bed. Hospital course: Patient presenting with paranoid ideation with work-up negative for organic disease.Patient carries a history of psychotic break previously and inpatient admission for 3 days. Daughter insist that Valium is what helped previously. Patient was started on Zyprexa by psychiatry. Unfortunately after 2 days this was ineffective. 12/28/22: Zyprexa was stopped and Seroquel was initiated last night once daily extended release. She was also started on Atarax 25 mg 4 times daily for anxiety. 12/29/22: Patient is markedly improved having no further outbursts or paranoid ideas. Urine output has decreased and urine appears darker. UA obtained this afternoon and is mildly positive for UTI will treat with Macrodantin. 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 Thus short-term goal is for patient to receive long term care locally to give the daughter time to prepare for move. Originally .patient will need placement locally until arrangements can be made.? Initially, [facility] unit is what is recommended.? However with her improvement it is possible that patient can transfer to SNF Medications: Reviewed: Yes Vitals/I&O/Wt Last Vital Signs Temp 98.1 F 12/31/22 03:54 Pulse 60 12/31/22 03:54 Resp 15 12/31/22 03:54 BP 120/67 12/31/22 03:54 Pulse Ox 90 12/31/22 03:54 O2 Del Method Room Air 12/31/22 03:54 12/30/22 12/31/22 12/31/22 22:59 06:59 14:59 Output Total 500 / 500 Balance -500 / -20 Physical Exam Narrative: Patient seen sitting in chair. Neurologic nonfocal Heart normal S1-S2 without murmurs clicks gallops or rubs Lungs clear to auscultation without wheezes rales or rhonchi Abdomen soft nontender nondistended positive bowel sounds Extremities no clubbing cyanosis or edema Psychiatric:not alert to person, place or time. suspicious nature during conversation. some paranoia of hospital staff Urinary Catheter Management: Da Silva: Cath Placed During This Visit: yes, but has since been removed by the nurse Reason for Continuing Indwelling Catheter: Decision to DC Catheter Urinary Catheter Date of Insertion: 12/25/22 Urinary Catheter Time of Insertion: 12:49 Date Urinary Catheter Removed: 12/29/22 Time Urinary Catheter Discontinued: 14:05 Data 12/26/22 02:48 12/29/22 04:59 Micro: Microbiology 12/29/22 13:41 Urine Culture - Preliminary Urine,Clean Catch Gram Negative Rods Gram Negative Rods#2 12/25/22 12:19 Blood Culture - Final Blood NO GROWTH AFTER 5 DAYS 12/25/22 12:22 Blood Culture - Final Blood NO GROWTH AFTER 5 DAYS A&P Assessment and plan (1) Acute psychosis: Seroquel with some improvement per nursing staff Hydroxyzine QID followed by psych pending [facility] transfer (2) Elevated TSH: Synthroid increased to 112 mcg daily (3) Generalized muscle weakness: PT OT working with patient she is requiring walker (4) Tachycardia: has been started on atenolol 25mg qd HR improved home micardis was discontinued (5) UTI (urinary tract infection): Macrobid (day 3) (6) JOANA (acute kidney injury): Creatinine bump from 0.9 to 1.5 (12/29/22) pending AM BMP encourage PO intake. 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 The short-term goal is for patient to receive long term care locally to give the daughter time to prepare for move.? Initially, due to the psychosis, [facility] unit was recommended.? However, with her improvement it is possible that patient can transfer to SNF Attestations Medical Necessity Statement*: pending [facility] transfer Coding Level of Care Code 04363 Diagnoses Acute psychosis F23 Elevated TSH R79.89 Generalized muscle weakness M62.81 Tachycardia R00.0 UTI (urinary tract infection) N39.0 JONAA (acute kidney injury) N17.9 Hypertension I10
[2022-12-31 08:00] VITALS: BP 175/75; PULSE 74; RESP 15; RESP 16; TEMP 36.7; O2SAT 94
[2022-12-31 09:05] LABS: Blood Urea Nitrogen 29 mg/dL (8-23); Calcium 9.6 mg/dL (8.5-10.5); Carbon Dioxide 30 mmol/L (22-29); Glucose 136 mg/dL (65-115)
[2022-12-31 09:21] LABS: Anion Gap 15.8 (5-19); Chloride 93 mmol/L (98-107); Osmolality Calculated 288 mOsm/kg (285-295); Potassium 3.8 mmol/L (3.5-5.1); Sodium 135 mmol/L (136-145)
[2022-12-31] MEDS: atenolol 50 mg Tablet 25 MG PO (09:49)
[2022-12-31] MEDS: docusate sodium 100 mg Capsule PO (09:49)
[2022-12-31] MEDS: hyDROXYzine 25 mg Capsule PO ×2 (09:50→13:10)
[2022-12-31] MEDS: nitrofurantoin SR (BID) 100 mg Capsule PO (09:51)
[2022-12-31 10:11] LABS: Creatine Phosphokinase 105 U/L (26-192)
--- NOTE | 2022-12-31 10:14 | P.DS_ITS ---
Discharge Providers Date of Admission: 12/25/22 14:47 Date of Discharge: December 31, 2022 Attending Provider at Admission: Merle Schwartz MD Attending Provider at Discharge: Jeffery Bailey MD Consults: Dr. Barrera (psychiatry) Primary Care Provider: TARAS Yuan Diagnoses at Discharge Discharge Diagnosis (1) Acute psychosis: Status: Acute (2) Elevated TSH: Status: Acute (3) Generalized muscle weakness: Status: Acute (4) Tachycardia: Status: Acute (5) UTI (urinary tract infection): Status: Acute (6) JOANA (acute kidney injury): Status: Acute (7) Hypertension: Status: Acute Reason for Visit Reason for Visit: AMS Hospital Course Hospital Course 87yo F with Hx of HTN, Dementia and JOANA presented to ED with paranoid ideation and psychosis. Pt has hx of psychotic break previously with inpatient stay x 3 days. During hospitalization blood work and imaging showed negative for organic disease. hypokalemia was corrected. Pt seen by Psychiatrist Dr. Barrera. placed on Zyprexa; however, after two days this was ineffective. on 12/29/22. Was started on seroquel qhs and Hydroxyzine 25mg QID for anxiety. pt made markid improvement, no further outburst or paranoid ideation. UA was concerning for UTI, started on macrobid. on 12/29/22 Dr. Houston had long discussion with family. recommendation for geriatric psychiatric facility; however family desires to move back to [place]. on 12/30/22 pt showed worsening paranoia and some psychosis. it was determined that [facility] would accept this patient. unfortunately family was no longer in [place], thus due to her lack of capacity and inability to make medical judgments, and no POA present, i have made the judgment that she is best suited for [facility] at this time. Likely temporarily prior to moving back to [place] with family. On day of transfer her mentation showed some improvement but underlying dementia with continued paranoia persist and support move to [facility] facility. Physical Exam Narrative: Patient seen sitting in chair. Neurologic nonfocal Heart normal S1-S2 without murmurs clicks gallops or rubs Lungs clear to auscultation without wheezes rales or rhonchi Abdomen soft nontender nondistended positive bowel sounds Extremities no clubbing cyanosis or edema Psychiatric:not alert to person, place or time. suspicious nature during conversation. some paranoia of hospital staff Urinary Catheter Management: Da Silva: Cath Placed During This Visit: yes, but has since been removed by the nurse Reason for Continuing Indwelling Catheter: Decision to DC Catheter Urinary Catheter Date of Insertion: 12/25/22 Urinary Catheter Time of Insertion: 12:49 Date Urinary Catheter Removed: 12/29/22 Time Urinary Catheter Discontinued: 14:05 Discharge Data Studies Completed and Pending Completed Studies During Hospitalization Category Date Time Status CT head wo con* [id number] Stat Cat Scan 12/25/22 11:[address] abdomen pelvis [CT angio chest w abd pel w Cat Scan 12/25/22 17:06 Completed con] Routine XR chest 1V portable [id number] Stat Exams 12/25/22 11:55 Completed MR head wo con* [id number] Routine MRI 12/26/22 12:23 Completed Pending at discharge Category Date Time Status Urine Culture Routine Lab 12/29/22 13:41 Results Radiology Impressions Chest X-Ray 12/25/22 11:55 IMPRESSION: Large hiatal hernia. Possible left basilar atelectasis or left pleural effusion. Head CT 12/25/22 11:55 IMPRESSION: No acute intracranial abnormality. Chest/Abdomen/Pelvis CT 12/25/22 17:06 IMPRESSION: 1. No acute PE. 2. Mild cardiomegaly with possible element of mild vascular congestion. Coronary calcification. 3. Compressive atelectasis adjacent to the diaphragm. No acute lung findings otherwise. Large diaphragmatic hernia. Please refer to abdominopelvic CT report below. IMPRESSION: 1. Large hiatal/diaphragmatic hernia as described above. 2. Colonic diverticulosis. No acute bowel findings. 3. No acute abdominopelvic findings otherwise. Please see chest CT report above. COMMENTS: Consistent with the [employer]'s Incidental Findings Committee white paper (J [employer] Young [employer]iol 2018): Any incidental renal lesion less than 1 cm or classified as too small to characterize, or any incidental cystic renal lesion characterized as simple-appearing, is likely benign. No follow-up imaging is recommended for these lesions per consensus recommendations based on imaging criteria. Head MRI 12/26/22 12:23 IMPRESSION: No acute ischemia. Laboratory Results WBC 7.7 10^3/uL (4.0-10.0) 12/26/22 02:48 RBC 4.29 10^6/uL (4.1-5.3) 12/26/22 02:48 Hgb 13.1 g/dL (11.5-15.3) 12/26/22 02:48 Hct 38.5 % (37.0-47.0) 12/26/22 02:48 MCV 89.7 fl (81-99) 12/26/22 02:48 MCH 30.5 pg (28.0-34.0) 12/26/22 02:48 MCHC 34.0 g/dL (30.0-36.0) D 12/26/22 02:48 RDW 12.5 % (12.1-15.1) 12/26/22 02:48 Plt Count 313 10^3/cmm (130-400) 12/26/22 02:48 MPV 9.5 fL (7.4-10.4) 12/26/22 02:48 Neut % (Auto) 72.6 % 12/26/22 02:48 Lymph % (Auto) 16.7 % 12/26/22 02:48 Toole % (Auto) 8.0 % 12/26/22 02:48 Eos % (Auto) 2.0 % 12/26/22 02:48 Baso % (Auto) 0.4 % 12/26/22 02:48 Neut # (Auto) 5.57 10^3/uL (1.8-7.7) 12/26/22 02:48 Lymph # (Auto) 1.3 10^3/uL (0.8-4.8) 12/26/22 02:48 Toole # (Auto) 0.6 10^3/uL (0.2-0.9) 12/26/22 02:48 Eos # (Auto) 0.2 10^3/uL (0.0-0.8) 12/26/22 02:48 Baso # (Auto) 0.0 10^3/uL (0.0-0.1) 12/26/22 02:48 Nucleated RBC % (auto) 0 % 12/26/22 02:48 Nucleated RBCs # 0.0 /100WBC 12/26/22 02:48 Specimen Type Arterial 07/29/23 12:06 Sample Site Radial, left 12/25/22 12:06 ABG pH 7.49 (7.35-7.45) H 12/25/22 12:06 ABG pCO2 41.3 mmHg (35-45) 12/25/22 12:06 ABG pO2 63.7 mmHg (80.0-100.0) L 12/25/22 12:06 ABG HCO3 31.4 mmol/L (22-26) H 12/25/22 12:06 ABG O2 Saturation 94.5 12/25/22 12:06 ABG Base Excess 7.3 mmol/L (-2.0-2.0) H 12/25/22 12:06 Chucky Test Pos 12/25/22 12:06 A-a O2 Gradient 4.6 mmHg (5-10) L 12/25/22 12:06 Hematocrit 48.0 % (37-47) H 12/25/22 12:06 Hgb O2 Saturation 92.9 % (95-100) L 12/25/22 12:06 Carboxyhemoglobin 1.4 %THgb (0.4-20.1) 12/25/22 12:06 Methemoglobin 0.3 % (0.4-1.5) L 12/25/22 12:06 Total Hemoglobin 15.7 g/dL (12-16) 12/25/22 12:06 Sodium 130.0 mmol/L (131-143) L 12/25/22 12:06 Potassium 2.5 mmol/L (3.5-5.0) L 12/25/22 12:06 Glucose 152.0 mg/dL (70-115) H 12/25/22 12:06 Ionized Calcium 1.1 mmol/L (1.1-1.4) 12/25/22 12:06 O2 Delivery Device Room air 12/25/22 12:06 FiO2 21.0 % 12/25/22 12:06 Specimen Drawn By Ria 12/25/22 12:06 Qc Tech ID Ria 12/25/22 12:06 Sodium 135 mmol/L (136-145) L 12/31/22 08:11 Potassium 3.8 mmol/L (3.5-5.1) 12/31/22 08:11 Chloride 93 mmol/L (98-107) L 12/31/22 08:11 Carbon Dioxide 30 mmol/L (22-29) H 12/31/22 08:11 Anion Gap 15.8 (5-19) 12/31/22 08:11 BUN 29 mg/dL (8-23) H 12/31/22 08:11 Creatinine 1.1 mg/dL (0.5-0.9) H 12/31/22 08:11 GFR Calculation Not Reportable 12/31/22 08:11 Glucose 136 mg/dL (65-115) H 12/31/22 08:11 POC Glucose 127 mg/dL (70-110) H 12/25/22 14:39 Calculated Osmolality 288 mOsm/kg (285-295) 12/31/22 08:11 Lactic Acid 1.3 mmol/L (0.5-2.2) 12/25/22 12:19 Calcium 9.6 mg/dL (8.5-10.5) 12/31/22 08:11 Magnesium 1.8 mg/dL (1.7-2.3) 12/29/22 04:59 Total Bilirubin 0.6 mg/dL (0.15-1.2) 12/27/22 02:28 AST 33 U/L (0-32) H 12/27/22 02:28 ALT 15 U/L (0-33) 12/27/22 02:28 Alkaline Phosphatase 41 U/L (35-105) 12/27/22 02:28 Ammonia 25 umol/L (11-51) 12/25/22 18:14 Creatine Kinase 105 U/L (26-192) 12/31/22 08:11 CK-MM (CK-3) Cancelled 12/31/22 08:11 CK-MB (CK-2) Cancelled 12/31/22 08:11 CK-BB (CK-1) Cancelled 12/31/22 08:11 Creatine Kinase Interp Cancelled 12/31/22 08:11 Troponin T Baseline 19 ng/L (0-10) H 12/25/22 12:19 Troponin T 120 Minute 19.72 ng/L (0-10) H 12/25/22 14:13 Delta Troponin T 0.72 ABS# (0-10) 12/25/22 14:13 Troponin T Hi Sens 6Hr 24.07 ng/L (0-10) H 12/25/22 18:14 Troponin T Hi Sens 6Hr Delta 5.07 ng/L (0-12) 12/25/22 18:14 C-Reactive Protein 3.3 mg/L (0.0-4.9) 12/25/22 12:19 NT-Pro-B Natriuret Pep 568 pg/mL (0-450) H 12/25/22 12:19 Total Protein 5.2 g/dL (6.6-8.7) L 12/27/22 02:28 Albumin 3.5 g/dL (3.5-5.2) 12/27/22 02:28 Globulin 1.7 g/dL (1.3-4.6) 12/27/22 02:28 Vitamin B12 466 pg/mL (232-1245) 12/25/22 12:19 Folate 14.8 ng/mL (4.8-37.3) 12/25/22 18:14 Procalcitonin 0.05 ng/mL (0-0.5) 12/25/22 12:19 TSH 7.90 uIU/mL (0.27-4.20) H 12/25/22 12:19 Free T4 1.32 ng/dL (0.82-1.77) 12/25/22 12:19 Urine Color Dark yellow (Yellow) 12/29/22 13:41 Urine Appearance Cloudy (CLEAR) A 12/29/22 13:41 Urine pH 5 (5-7) 12/29/22 13:41 Ur Specific Parker 1.020 (1.005-1.030) 12/29/22 13:41 Urine Protein 3+ (Negative) H 12/29/22 13:41 Urine Glucose (UA) 1+ (Normal) H 12/29/22 13:41 Urine Ketones 1+ (Negative) H 12/29/22 13:41 Urine Blood 3+ (Negative) H 12/29/22 13:41 Urine Nitrate Positive (Negative) H 12/29/22 13:41 Urine Bilirubin 1+ (Negative) H 12/29/22 13:41 Prot Sulfosalicylic Acd Negative (Negative) 12/25/22 12:48 Urine Urobilinogen 1 mg/dL (Negative) H 12/29/22 13:41 Ur Leukocyte Esterase 2+ (Negative) H 12/29/22 13:41 Urine RBC 10-15 /hpf (0-2) H 12/29/22 13:41 Urine WBC 80-100 /hpf (0-5) H 12/29/22 13:41 Ur Squamous Epith Cells 0-4 /hpf (0-5) H 12/29/22 13:41 Amorphous Sediment 1+ /hpf 12/29/22 13:41 Urine Bacteria 2+ /hpf (NONE) H 12/29/22 13:41 Urine Mucus 1+ /hpf 12/29/22 13:41 Salicylates < 0.3 mg/dL (3-10) L 12/25/22 12:19 Urine Opiates Screen Negative ng/mL (Negative) 12/25/22 12:48 Acetaminophen < 5.0 ug/mL (10-30) L 12/25/22 12:19 Ur Barbiturates Screen Negative ng/mL (Negative) 12/25/22 12:48 Ur Phencyclidine Scrn Negative ng/mL (Negative) 12/25/22 12:48 Ur Amphetamines Screen Negative ng/mL (Negative) 12/25/22 12:48 U Benzodiazepines Scrn Negative ng/mL (Negative) 12/25/22 12:48 Urine Cocaine Screen Negative ng/mL (Negative) 12/25/22 12:48 U Marijuana (THC) Screen Negative ng/mL (Negative) 12/25/22 12:48 Ethyl Alcohol < 10 mg/dL (0-10) 12/25/22 12:19 SARS-CoV-2 Ag (Rapid) negative (Negative) 12/25/22 13:26 Vitals Last Vital Signs Temp 98.0 F 12/31/22 08:00 Pulse 74 12/31/22 08:00 Resp 15 12/31/22 08:00 BP 175/75 12/31/22 08:00 Pulse Ox 94 12/31/22 08:00 O2 Del Method Room Air 12/31/22 03:54 Discharge Plan Discharge Patient Disposition: Home Condition: Stable Prescriptions: New hydroxyzine pamoate 25 mg Capsule 25 mg PO QID Qty: 120 0RF quetiapine 50 mg Tablet Extended Release 24 Hr 150 mg PO BEDTIME Qty: 30 0RF levothyroxine 112 mcg Tablet 112 mcg PO QAM Qty: 60 0RF nitrofurantoin monohyd/m-cryst 100 mg Capsule 100 mg PO BID Qty: 10 0RF atenolol 50 mg Tablet 25 mg PO DAILY Qty: 30 0RF Continued Advair Diskus 100-50 mcg/dose blister with device 1 inh INHALATION BID albuterol sulfate 90 mcg/actuation HFA aerosol inhaler 2 inh INHALATION Q6H PRN (Reason: Shortness Of Breath) Discontinued Levoxyl 100 mcg tablet 100 mcg PO DAILY Micardis HCT 80-25 mg tablet 1 tab PO DAILY Discharge Orders: Discharge Order (Routine); Ordered 12/31/22 Ordered By: Jeffery Bailey Referrals: Monica Paz FNP [Primary Care Provider] - Discharge Diet: Advance as tolerated Discharge Activity: Limit activity as instructed Patient Instructions: Dementia (ED), Subarachnoid Hemorrhage (GEN) Discharge Attestations Time Spent in Discharge Care*: less than 30 min Quality Metrics Clinical Quality Measures [ No reported AMI, CVA or VTE this stay] Coding Level of Care Code 32038 Diagnoses Acute psychosis F23 Elevated TSH R79.89 Generalized muscle weakness M62.81 Tachycardia R00.0 UTI (urinary tract infection) N39.0 JOANA (acute kidney injury) N17.9 Hypertension I10
[2022-12-31 13:21] VITALS: BP 155/77; PULSE 74; RESP 16; TEMP 36.7; O2SAT 94
--- NOTE | 2023-01-02 08:28 | PC.SOCIAL ---
Urine Culture Patient transferred to [facility], spoke with Dr. Ya who recommended updating the facility, [facility], that the patient transferred to. LUIS ALFREDO spoke with AURORA Krause with [facility] and faxed to results. Message sent to Dr. Plaza via [facility].
== END 2022-12-31 13:24 | DRG 884 ==
LOC: ER 13:51 → CSU 15:15 → MEDSURG 12-26 15:04
PROVIDERS: Internal Medicine; Admitting Provider Student in an Organized Health Care Education/Training Program; Emergency Provider Emergency Medicine; PCP Nurse Practitioner Family; Visit Provider Family Medicine
DX: F03.92 Unspecified dementia, unspecified severity, with psychotic disturbance (principal); N39.0 Urinary tract infection, site not specified; N17.9 Acute kidney failure, unspecified; E87.1 Hypo-osmolality and hyponatremia; M62.82 Rhabdomyolysis; E87.6 Hypokalemia; B96.20 Unspecified Escherichia coli [E. coli] as the cause of diseases classified elsewhere; B96.1 Klebsiella pneumoniae [K. pneumoniae] as the cause of diseases classified elsewhere; B95.62 Methicillin resistant Staphylococcus aureus infection as the cause of diseases classified elsewhere; M62.81 Muscle weakness (generalized); I10 Essential (primary) hypertension; F41.9 Anxiety disorder, unspecified; Z79.51 Long term (current) use of inhaled steroids; R79.89 Other specified abnormal findings of blood chemistry; E86.0 Dehydration
CPT/HCPCS: 36415; 36416; 36600; 51702; 70450; 70551; 71045; 71275; 74177; 80048; 80051; 80053; 80306; 80307; 81001; 82140; 82330; 82550; 82607; 82746; 82805; 82962; 83605; 83735; 83880; 84145; 84439; 84443; 84484; 85025; 86140; 87040; 87077; 87086; 87186; 87426; 93005; 96365; 96375; 96376; 97110; 97116; 97161; 97166; 97530; 99285; 99291; A9270; J0360; J2060; J2405; J3480; J3490; J7030; Q9967